=== PATIENT | male | born 2005 | race Caucasian/White ===

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

== ENCOUNTER 2025-07-02 07:21 | Emergency (ER) | payer OTHER ==
[~2025-07-02] VITALS: Ht 195.6 cm; Wt 136.1 kg
[2025-07-02 07:34] VITALS: BP 141/74
== END 2025-07-02 08:45 | disposition home or self-care (01) ==
LOC: ER 07:21
DX: S70.02XA Contusion of left hip, initial encounter (principal); S20.219A Contusion of unspecified front wall of thorax, initial encounter; M54.50 Low back pain, unspecified; J45.909 Unspecified asthma, uncomplicated; V49.9XXA Car occupant (driver) (passenger) injured in unspecified traffic accident, initial encounter
CPT/HCPCS: 71046; 72170; 82947; 93005; 93010; 99284-25